=== PATIENT | male | born 1960 | race Caucasian/White ===

== ENCOUNTER 2021-10-05 01:35 | Outpatient (CLI) | payer BC, SELFPAY ==
--- NOTE | 2021-10-05 08:45 | DI.NM_ITS ---
APPROVED REPORT Exam: Exercise Treadmill Patient Location: Out-Patient Room/Bed: Stress Nurse: Radha Muse RN Ordering Provider:EDUAR CRUM, Contact Number: [phone] BMI: 43.32 Baseline Rhythm: Sinus Rhythm Comment: Frequent PACs Indications: Dyspnea on exertion Medical History Medical History: Hypertension, diabetes, obesiity, anxiety, insomnia, diverticulosis Cardiac Medications: Aspirin, metformin, insulin glargine, glyburide Allergies: Zolpidem Cardiac Risk Factors: Hypertension, diabetes, obeisty, family hx Previous Cardiac Procedures: None Pretest Chest Pain Characteristics: None Exercise History: Sedentary Physical Disabilities: None Lung Sounds: Clear to auscultation Heart Sounds: Irregular Stress Test Details Test: Exercise stress testing was performed using a Lamont protocol. Nuclear Acquisition: Rest Tc-99m/Stress Tc-99m 1 day Rest Isotope: Tc-99m Sestamibi. Dose: 13.5 Date: 10/05/2021 Injection Time: 0855 Stress Isotope: Tc-99m Sestamibi. Dose: 43.0 Date: 10/05/2021 Injection Time: 1030 HR Resting HR Supine: 81 bpm Max Heart Rate (APMHR): 158.615336 bpm Resting HR Standin bpm Target HR (85% APMHR): 134.201233 bpm Max HR Achieved: 156 bpm % of APMHR: 98.73 Recovery HR: 94 bpm HR response to stress: Normal HR response to stress BP Resting BP Supine: 132/82 mmHg Resting BP Standin/82 mmHg Max BP: 172/88 mmHg Recovery BP: 152/84 mmHg BP response to stress: Normal blood pressure response to stress. ECG Resting ECG: Sinus Rhythm Ectopy: Frequent PACs Stress ECG: Sinus Tachycardia ST Change: No significant ST segment changes noted Arrhythmia: Frequent PACs Recovery ECG: Sinus Rhythm Recovery ST Change: No significant ST segment changes noted Recovery Arrhythmia: Frequent PACs Clinical Reason for Termination: Fatigue, Dyspnea Stress Symptoms: General Fatigue, Dyspnea Exercise duration: 4 min13 sec Highest Stage Reached: Stage 2: 2.5 mph at 12% grade. Exercise capacity: 6.11 METs Garcia Treadmill Score: 3.7 Rate Pressure Product: [id number] Stress ECG Conclusion 1. Resting electrocardiogram showed vertical axis, poor R wave progression 2. Patient exercised on the Lamont protocol and completed a workload of 6.11 METS, stopping due to fat igue and shortness of breath 3. Normal heart rate and blood pressure response to exercise. The patient achieved 98% of predicted heart rate for age 4. There was no electrocardiographic evidence of myocardial ischemia 5. Atrial premature beats were noted throughout Garcia Treadmill Score is 3.7 which is Moderate risk. Stress Test Summary STAGE Time (mins) Speed (mph) Grade (%) HR BP SYMPTOMS METS Supine 81 132/82 Standing 91 134/82 SpO2 95% 1 3 1.7 10 130 138/86 Mild- moderate SOB, SpO2 92% 4.6 2 6 2.5 12 146 Severe SOB, SpO2 90% 7 1 min recovery 125 172/88 Moderate SOB, SpO2 94% 3 min recovery 100 162/90 Mild SOB, SpO2 97% 6 min recovery 94 152/84 SOB resolved, SpO2 96% MPI Conclusion Normal myocardial perfusion without evidence of ischemia or prior infarction EF 63%, normal wall motion Radiologist Interpretation Radiologist Interpretation by: Alan Galvez MD Interpretation Date/Time: 10/06/2021 15:20:13
== END 2021-10-05 01:55 ==
PROVIDERS: Visit Provider Internal Medicine
DX: R06.09 Other forms of dyspnea (principal); I49.1 Atrial premature depolarization; I10 Essential (primary) hypertension; E11.9 Type 2 diabetes mellitus without complications; E66.9 Obesity, unspecified; Z82.49 Family history of ischemic heart disease and other diseases of the circulatory system
CPT/HCPCS: 78452; 93017